=== PATIENT | female | born 1930 | race Caucasian/White ===

== ENCOUNTER 2016-05-14 00:01 | Outpatient (RCR) ==
[2016-04-28 11:45] VITALS: BMI 20.6
== END 2016-06-13 ==
LOC: NEWBEG 00:01
PROVIDERS: ATTEND Psychiatry & Neurology Psychiatry
DX: F43.23 Adjustment disorder with mixed anxiety and depressed mood (principal); F06.0 Psychotic disorder with hallucinations due to known physiological condition

== ENCOUNTER 2016-06-14 09:32 | Outpatient (RCR) ==
[2016-04-28 11:45] VITALS: BMI 20.6
== END 2016-07-11 ==
LOC: NEWBEG 09:32 → EDSTATUS 09:43
PROVIDERS: ATTEND Psychiatry & Neurology Psychiatry
DX: F43.23 Adjustment disorder with mixed anxiety and depressed mood (principal); F06.0 Psychotic disorder with hallucinations due to known physiological condition